=== PATIENT | male | born 1970 | race Two or more races ===

== ENCOUNTER 2022-04-16 20:38 | Emergency (ER) | payer OTHER ==
[~2022-04-16] VITALS: Ht 172.7 cm; Wt 127.0 kg
[2022-04-16 22:32] VITALS: BP 122/80
[2022-04-17] MEDS ORDERED: IBUP800T26 PO (00:18)
[2022-04-17] MEDS ORDERED: SULF400T11 PO (00:18)
== END 2022-04-17 01:30 | disposition home or self-care (01) ==
LOC: ER 20:38
DX: M70.22 Olecranon bursitis, left elbow (principal); Z88.0 Allergy status to penicillin
CPT/HCPCS: 73080